=== PATIENT | female | born 1955 | race Hispanic/Latino ===

== ENCOUNTER 2018-07-02 06:08 | Day surgery (SDC) | payer MEDICARE, BC ==
[2018-06-30 15:44] VITALS: BMI 29.0
[2018-07-02 07:07] VITALS: O2SAT 96
[2018-07-02] MEDS ORDERED: Phenylephrine 10 mg/ml Inj ONE (07:15)
[2018-07-02] MEDS ORDERED: Lidocaine PF 2% (5 ml) Inj (For Cardiac Arrhy) ONE (07:15)
[2018-07-02] MEDS ORDERED: Iodixanol 320 MG/ML 100 ML BOTTLE IV ONE (07:16)
[2018-07-02] MEDS ORDERED: Iohexol 350mgl/ml 50 ML ONE (07:16)
[2018-07-02] MEDS ORDERED: Nitroglycerin 50mg in D5W 0 MG/0 ML BOTTLE IV ONE (07:16)
[2018-07-02] MEDS ORDERED: Iodixanol 320 MG/ML 200 ML BOTTLE IV ONE (07:16)
[2018-07-02] MEDS ORDERED: Midazolam 2 MG/2 ML VIAL ONE ×3 (07:40→08:19)
[2018-07-02] MEDS ORDERED: Sodium Chloride 0.9% 1,000 ML IV SCH (09:00)
--- NOTE | 2018-07-02 09:37 | CARDCATH ---
PROCEDURE DATE: 07/02/2018 CARDIAC CATHETERIZATION AND INTERVENTION REPORT PROCEDURES: 1. Selective left and right coronary angiography. 2. Right and left heart catheterization. 3. Percutaneous coronary intervention of mid and distal left anterior descending with drug-eluting stents. 4. Balloon angioplasty of first diagonal branch. 5. Percutaneous coronary intervention of first obtuse marginal branch with drug-eluting stents. HISTORY: This is a 63-year-old woman with known coronary artery disease, mitral regurgitation, who underwent recent abnormal stress test. Cardiac catheterization was advised. INDICATIONS: 1. Abnormal stress test. 2. Coronary artery disease. FINDINGS: HEMODYNAMICS: The right heart pressures were as follows. The RA mean pressure was 6. The RV pressure was 30/2. The PA pressure was 30/11 with a pulmonary capillary wedge pressure of 10. There was no V wave or mitral regurgitation noted. The cardiac output by thermodilution method was 4.7 L/minute with a cardiac index of 2.8 L/min/m2. CORONARY ANATOMY: 1. The left mainstem was large and normal. 2. The left anterior descending artery had a focal 70% eccentric stenosis in its early mid segment. In the early distal segment of the vessel, there was diffuse 50% stenosis followed by a focal 80% stenosis as well. The first diagonal branch which arose between the two segments of disease in the LAD had a 95% proximal stenosis. This was a moderate-size vessel. 3. The left circumflex artery was large and dominant. The left circumflex artery gave rise to a large first obtuse marginal branch, which had a 90% proximal stenosis. The distal circumflex and left posterior descending artery had minimal disease. 4. The right coronary artery was small and nondominant with evidence of moderate diffuse disease. LEFT VENTRICULOGRAPHY: A hand injection was performed in the left ventricle revealing mild diffuse hypokinesis with a normal ejection fraction of 50%. There was no aortic valve gradient on catheter pullback. Angiographic assessment of mitral regurgitation was not performed given the planned multivessel PCI and attempts to limit dye load. CORONARY INTERVENTION: A total of 5000 units of intravenous heparin was administered. The ACT was greater than 220 seconds during the procedure. A 3.5 EBU guide catheter was utilized and the lesions in the LAD successfully crossed with the use of a Dolliver wire. Following this, initial inflations in the mid and distal lesions were performed with a 2 x 10 mm balloon. Following this, a 2.75 x 22 mm Resolute drug-eluting stent was advanced into the early distal segment of vessel and inflated to 14 atmospheres for 45 seconds. There was 0% residual stenosis at that site. Subsequently, a 3 x 12 mm Resolute [place] drug-eluting stent was advanced into the early mid segment of the vessel and inflated to 16 atmospheres for 45 seconds. There was again 0% residual stenosis at the site. Following this, the wire was withdrawn and advanced into the diagonal branch. Over this, the 2 x 10 mm balloon was then reintroduced and inflated to 8 atmospheres for 30 seconds. A 30% residual stenosis remained at the lesion involved extended into the ostium and the decision was made to avoid stenting at this time in order to limit the compromise of flow in the LAD. Following this, the wire was then withdrawn and advanced into the obtuse marginal vessel. The 2 x 10 mm balloon was then used for initial inflations to 8 atmospheres. The balloon was then withdrawn and a 3 x 12 mm Resolute [place] drug-eluting stent was advanced into the proximal obtuse marginal branch and inflated to 14 atmospheres for 30 seconds. A second inflation was performed for an additional 30 seconds to 14 atmospheres. There was 0% residual stenosis at the site. LAKESHIA grade 3 flow was present in all vessels before and after the interventions. RIGHT FEMORAL ARTERIOGRAPHY: Right femoral arteriogram was performed in the STATON projection. This revealed no evidence of significant disease and appropriate level of arterial puncture. The puncture site was then closed with deployment of an Angio-Seal device. The venous access was closed with the deployment of a Mynx device. CONCLUSION: 1. Severe left anterior descending, diagonal and obtuse marginal disease, successfully treated with drug-eluting stent and balloon angioplasty as described above. 2. Mild left ventricular systolic dysfunction. 3. Normal right heart pressures. RECOMMENDATIONS: Given the above findings, aspirin and Plavix therapy will be continued for at least 1 year. Aggressive risk factor control was advised. Outpatient followup will be arranged. Farhat Yin MD [facility]ITALDmitri
--- NOTE | 2018-07-02 11:00 | CARD ---
APPROVED REPORT Date of service: 07/02/2018 EKG Measurement Heart [id number] <Conclusion> Normal sinus rhythm Voltage criteria for left ventricular hypertrophy STTW changes c/e ischemia
[2018-07-02 15:05] VITALS: BP 138/79; PULSE 68; RESP 15; TEMP 98.5
== END 2018-07-02 15:50 | disposition home or self-care (01) ==
LOC: CATH 06:08 → 2RSO 08:55 → CATH 15:50
PROVIDERS: ATTEND Internal Medicine Cardiovascular Disease
DX: I25.10 Atherosclerotic heart disease of native coronary artery without angina pectoris (principal); R94.39 Abnormal result of other cardiovascular function study; I34.0 Nonrheumatic mitral (valve) insufficiency
CPT/HCPCS: 36415; 85175; 86850; 86900; 93005; 93460; 99152; 99153; C1725; C1760 ×2; C1769 ×2; C1874 ×2; C1887; C1894; C2629; C9600; C9601; J1644 ×2; J2250; J3010; J7030; Q9966; Q9967 ×2